=== PATIENT | female | born 1970 | race Caucasian/White ===

== ENCOUNTER 2016-11-14 10:03 | Emergency (ER) | payer OTHER ==
--- NOTE | 2016-11-14 10:12 | EDPHY ---
H & P Stated Complaint: Ringing in ears for 1 week, dizzy last week Time Seen by Provider: 11/14/16 10:12 HPI/ROS: CHIEF COMPLAINT: Tinnitus, resolved left-sided headache, episodic cervical pain HISTORY OF PRESENT ILLNESS: The patient presents to the ED with a one-week history of migratory, episodic bilateral tendinitis left greater than right. She had a brief sharp left-sided headache yesterday while driving and she has had some episodic cervical pain. She denies prior history of the symptoms. She denies any recent fall or chiropractic manipulation. The patient currently denies any headache. She did contact her primary care provider who referred her to the emergency department for further evaluation. REVIEW OF SYSTEMS: A comprehensive 10 point review of systems is otherwise negative aside from elements mentioned in the history of present illness. Source: Patient Exam Limitations: No limitations - Personal History LMP (Females 10-55): 22-28 Days Ago Current Tetanus/Diphtheria Vaccine: Unsure Current Tetanus Diphtheria and Acellular Pertussis (TDAP): Unsure Tetanus Vaccine Date: - Medical/Surgical History Hx Asthma: No Hx Chronic Respiratory Disease: No Hx Diabetes: No Hx Cardiac Disease: No Hx Renal Disease: No Hx Cirrhosis: No Hx Alcoholism: No Hx HIV/AIDS: No Other PMH: Surgial:ACL. Medical: denies - Social History Smoking Status: Never smoked - Physical Exam Exam: General Appearance: Alert, no distress Eyes: Pupils equal and round no pallor or injection ENT, Mouth: Mucous membranes moist Respiratory: There are no retractions, lungs are clear to auscultation Cardiovascular: Regular rate and rhythm Gastrointestinal: Abdomen is soft and nontender, no masses, bowel sounds normal Neurological: A&O, normal motor function, normal sensory exam, normal cranial nerves Skin: Warm and dry, no rashes Musculoskeletal: Neck is supple nontender Extremities: symmetrical, full range of motion Constitutional: Initial Vital Signs Temperature (C) 36.7 C 11/14/16 10:07 Heart Rate 87 11/14/16 10:07 Respiratory Rate 16 11/14/16 10:07 Blood Pressure 138/86 H 11/14/16 10:07 O2 Sat (%) 96 11/14/16 10:07 O2 Delivery Mode Room Air Allergies/Adverse Reactions: aspirin Allergy (Verified 11/14/16 10:07) Home Medications: Medication Instructions Recorded NK [No Known Home Meds] 11/14/16 Medical Decision Making - Diagnostics Imaging: MRI brain without contrast: Negative for intracranial abnormality. No radiographic evidence of subarachnoid hemorrhage. MR angiogram brain: Negative for aneurysm MR angiogram neck: Negative for dissection. All MRI results reported to me by Dr. Wily Hoffmann. ED Course/Re-evaluation: The patient presents to the ED with intermittent bilateral tinnitus for the past several weeks. The patient did have an episode of a very brief self- limited headache yesterday. She denies any focal neurologic symptoms and has been asymptomatic following that headache. Patient was referred to the ED by her primary care provider. In the ED the patient is noted to be neurologically intact. She has no risk factors for dissection. She has had some cervical neck pain as well. Given the patient's complaints of tinnitus, headache and neck pain I did perform an angiogram of her head and neck which was normal. MRI of her brain demonstrates no evidence of subarachnoid hemorrhage. The patient was initially offered a CT scan as she has been informed that that is more sensitive for subarachnoid hemorrhage but declined secondary to concerns of radiation. I re-evaluated the patient at 1:00 p.m.. I have informed her that at this point time we have a high degree of confidence that there is no evidence of a saccular aneurysm. The patient does not fully understand that we cannot fully exclude the possibility of a sentinel bleed from a non aneurysmal SAH. The patient does competently refuse lumbar puncture at this point time. She is comfortable returning to the ED for recurrent headache. She does understand that additional workup may be indicated in the event of a recurrent severe headache. Differential Diagnosis: Differential diagnosis considered includes dissection, aneurysm, subarachnoid hemorrhage, meningitis, intracranial tumor - Data Points Laboratory Results: 11/14/16 10:49 POC Hgb 13.6 gm/dL (12.3-15.9) POC Hct 40 % (35.5-47.5) POC Sodium 143 mEq/L (134-144) POC Potassium 3.6 mEq/L (3.3-5.0) POC Chloride 107 mEq/L (96-108) POC BUN 20 mg/dL (7-23) POC Creatinine 0.7 mg/dL (0.6-1.2) POC Glucose 110 H mg/dL (70-100) Point of Care Test Results: 11/14/16 10:49 POC Sodium 143 POC Potassium 3.6 POC Chloride 107 POC BUN 20 POC Creatinine 0.7 POC Glucose 110 H Departure - Departure Disposition: Home, Routine, Self-Care Clinical Impression: Tinnitus Condition: Good Instructions: Tinnitus (ED) Additional Instructions: 1. Please return to the emergency department for any recurrent headache, numbness, weakness or other concerns. 2. Your MRI and MR angiogram of the head and neck are normal. 3. Please follow up with your regular primary care provider as scheduled. As we discussed, we cannot fully exclude the possibility of a intracranial bleed without performing a lumbar puncture. Referrals: Isis Robledo MD [Primary Care Provider] - As per Instructions
[2016-11-14] MEDS ORDERED: GADOBUTROL 10 ML VIAL IVP ONE (11:06)
--- NOTE | 2016-11-14 12:36 | MR ---
MR Arteriogram of the [place] November 14, 2016 Indication: Headache and tinnitus. R29.818 Neurological changes strongly suggesting intracerebral ane urysm. Technique: A qekk-ni-wqgohc gradient echo technique was used for thin axial images at the skull base for evaluation of major vessels of the [place]. Three-dimensional technique was used with a 30-degree gradient echo flip angle and a traveling saturation band. Images were manipulated by the ra diologist at the computer workstation. Findings: Normal anterior and posterior circulation. No intracranial aneurysm, filling defect, or vas cular malformation. Bilateral posterior communicating arteries are small in caliber. The sagittal sin us has expected flow-void. Impression: Normal intracranial arterial circulation. No aneurysm or evidence of embolic disease. Comment: Results were discussed with Dr. Lizette Donaldson at 12:10 p.m. on November 14, 2016.
--- NOTE | 2016-11-14 12:40 | MR ---
MRI Brain Without Contrast dated November 14, 2016 Indication: Headache, tinnitus, and neck pain. Technique: Sagittal and axial T1, axial T2, FLAIR, susceptibility weighted, and diffusion-weighted im aging. Comparison: None. Findings: The brain is normally developed. No intracranial hemorrhage, subdural hematoma, mass, or ed jourdan. Evans and white matter signal is normal. No white matter disease. No cerebellopontine angle mass. Diffusion-weighted imaging is normal. No evidence of ischemia. Ventricular system is normal in calib er and midline. The sagittal sinus and basivertebral arteries have normal black flow-void in T2-weigh augusto imaging. The paranasal sinuses are clear except for trace fluid in the right mastoid air cells. T he cervicooccipital junction is normal and the pituitary gland is normal in size. Impression: Normal brain. No intracranial hemorrhage, mass, white matter disease, or ischemia. Comment: Results were discussed with Dr. Lizette Donaldson shortly after study completion.
--- NOTE | 2016-11-14 12:53 | MR ---
MR Angiography of the Neck November 14, 2016 Clinical Indications: Headache, tinnitus, and neck pain. Technique: After a preliminary timing bolus run, a three-dimensional vascular egvl-wc-dcbekh study w as performed from the upper chest to the skull base, using a total of 10 mL Gadavist intravenously. I mages were manipulated by the radiologist at the computer workstation. Findings: The aortic arch has typical three-vessel branching anatomy. The carotid and vertebral sandra nilton are all widely patent. No occlusion, dissection, or flow-limiting stenosis. Impression: Normal magnetic resonance angiogram of the neck. Measurement of carotid stenosis is based on the residual internal carotid diameter with [place] n Symptomatic Carotid Endarterectomy Trial (NASCET) based stenosis levels. Comment: Results were discussed with Dr. Juanpablo Gonzalez at 12:40 p.m. today.
[2016-11-14 13:35] VITALS: RESP 18; TEMP 98.2
[2016-11-14 14:07] LABS: PROTEIN, CSF 21 mg/dL (12-60)
[2016-11-14 14:09] LABS: CSF APPEARANCE CLEAR (CLEAR); CSF COLOR COLORLESS (COLORLESS); CSF SUPERNATANT COLORLESS (COLORLESS); WBC, CSF 0 /mm3 (0-5)
[2016-11-14 14:11] LABS: CSF APPEARANCE CLEAR (CLEAR); CSF COLOR COLORLESS (COLORLESS); CSF SUPERNATANT COLORLESS (COLORLESS)
[2016-11-14 14:15] LABS: WBC, CSF 0 /mm3 (0-5)
[2016-11-14 14:37] VITALS: BP 117/83; PULSE 59; O2SAT 96
== END 2016-11-14 14:36 | disposition home or self-care (01) ==
PROC: 009U3ZX Drainage of Spinal Canal, Percutaneous Approach, Diagnostic (ICD-10-PCS; principal; 2016-11-14)
DX: H93.19 Tinnitus, unspecified ear (principal); R51 Headache
CPT/HCPCS: 82947-QW; A9585

== ENCOUNTER 2016-11-17 11:39 | Emergency (ER) | payer OTHER ==
[2016-11-17 11:44] VITALS: BP 123/75; PULSE 65; RESP 16; TEMP 98.1; O2SAT 98
--- NOTE | 2016-11-17 12:22 | EDPHY ---
H & P Stated Complaint: MAST worse post spinal tap on sat. nausea - Personal History LMP (Females 10-55): Now Current Tetanus/Diphtheria Vaccine: Yes Current Tetanus Diphtheria and Acellular Pertussis (TDAP): Yes Tetanus Vaccine Date: - Medical/Surgical History Hx Asthma: No Hx Chronic Respiratory Disease: No Hx Diabetes: No Hx Cardiac Disease: No Hx Renal Disease: No Hx Cirrhosis: No Hx Alcoholism: No Hx HIV/AIDS: No Other PMH: Surgial:ACL, dental. Medical: denies - Social History Smoking Status: Never smoked HPI/ROS: CHIEF COMPLAINT: Headache HISTORY OF PRESENT ILLNESS: headache that originally started on Wednesday. This was primarily right-sided but also General at times. It was associated with tenderness of the time. She was seen here in the emergency department on Wednesday morning, where she had MRI, labs, LP were all reportedly normal. Headache improved but now is returning over the past 36 hours. It is worse when ambulatory and upright. It does improve with rest. No nausea or vomiting. No neck pain or stiffness. No hearing loss. No fever or chills. No other associated complaints or modifying factors. REVIEW OF SYSTEMS: Ten systems reviewed and are negative unless otherwise noted in the HPI EXAMINATION General Appearance: Alert, no distress Head: normocephalic, atraumatic Eyes: Pupils equal and round, no conjunctival pallor or injection ENT, Mouth: Mucous membranes moist Neck: Normal inspection, supple, non-tender , no meningismus Respiratory: Lungs are clear to auscultation Cardiovascular: Regular rate and rhythm Gastrointestinal: Abdomen is soft and nontender Back: non-tender, no bony abnormalities Neurological: A&O, nonfocal, strength is 5/5 symmetrically. Sensation intact. No pronator drift. Skin: Warm and dry, no rash Extremities: Nontender, no pedal edema Psychiatric: Mood and affect normal DIFFERENTIAL DIAGNOSES: 1. Post puncture headache 2. headache 3. Meniere's MDM: 12:25 headache post LP that is likely related. It is postural And she is neuro intact. No meningismus. She will likely benefit from a blood patch. We have contacted anesthesia and I spoke with Dr. Johnson. he informed me that he would be happy to perform the procedure but given the schedule at this time, it would likely be 7:00 p.m. before they are able to do so. We are exploring other options for the patient at this time. 12:57 after discussions with anesthesia and intervention Radiology, the patient will be seen in interventional radiology for blood patch later today. The 1st availability will be sometime after 5:00 p.m.. She will be discharged home at this time as we have placed an order for her to be done outpatient. Patient is comfortable this plan and discharged home in stable condition. She will be contacted by there department for scheduling later today. SUPERVISION: This patient was independently evaluated without the aide of supervising physician. (Junior Downing) Constitutional: Initial Vital Signs Temperature (C) 36.7 C 11/17/16 11:41 Heart Rate 65 11/17/16 11:41 Respiratory Rate 16 11/17/16 11:41 Blood Pressure 123/75 H 11/17/16 11:41 O2 Sat (%) 98 11/17/16 11:41 O2 Delivery Mode Room Air Allergies/Adverse Reactions: aspirin Allergy (Verified 11/14/16 10:07) Home Medications: Medication Instructions Recorded NK [No Known Home Meds] 11/14/16 Medical Decision Making Other Provider: The patient was evaluated and managed by the physician seo assistant. I have reviewed this chart and I agree with the findings and plan of care as documented , as indicated by my signature. I am the secondary supervising physician. ( Nathalie Acosta) Departure - Departure Disposition: Home, Routine, Self-Care Clinical Impression: Post-dural puncture headache Condition: Good Instructions: General Headache (ED), Lumbar Puncture (ED) Additional Instructions: Follow-up in Interventional Radiology later today for blood patch per their instructions. Referrals: Isis Robledo MD [Primary Care Provider] - As per Instructions
== END 2016-11-17 13:14 | disposition home or self-care (01) ==
DX: G97.1 Other reaction to spinal and lumbar puncture (principal)

== ENCOUNTER → 2016-11-17 | Day surgery (SDC) | payer OTHER ==
[~2016-11-17] MED LIST: IOPAMIDOL (ISOVUE-M 300) 15 ML VIAL IV ONE
--- NOTE | 2016-11-17 20:44 | IR ---
Lumbar Epidural Blood Patch History: Severe, disabling spinal headache after lumbar puncture three days ago. Consent: Risks and benefits of the procedure were discussed in detail. Informed consent was obtaine dMaricel Technique: The nurse started an intravenous line in the left forearm. With the patient prone, the b ack was prepped and draped in sterile fashion. 1% Xylocaine was used for local anesthetic. Using ltiplanar fluoroscopic guidance, an 18-gauge Tuohy needle was inserted into the back of the spinal ca nal at the level of the L2-L3 interlaminar space. Insertion site was close to the evidence of previo us needle insertion. Epidural position was confirmed with 2 mL of Isovue-M 300, and spot images were taken in oblique and frontal projections. 18 mL of venous blood were taken from the left arm of the patient and slowly injected into the lumbar epidural needle. The needle was removed and sterile lele ssing was applied. The patient was observed for 30 to 60 minutes prior to discharge from the [facility]. She tolerated the procedure well. Epidurogram: The 18-gauge Tuohy needle is in the midline at the L2-L3 interlaminar space, with even distribution of epidural contrast. Impression: Lumbar epidural blood patch, using 18 mL of blood. - - - - - - - - - - - - - - - - - - - - - - - - - - - - - - - - - - - - - - - - - - - - (PQRS Measures: Current medications were listed in the medical record, including all known prescript ions, keds-cui-tilukit medications, herbal medications, and nutritional supplements. Tobacco Use: N one. Prophylactic antibiotic: Unnecessary. VTE prophylaxis: Unnecessary.) IR Call
== END | disposition home or self-care (01) ==
LOC: FIMAGING 18:10
PROVIDERS: ATTEND Physician Assistant
PROC: 3E0S3GC Introduction of Other Therapeutic Substance into Epidural Space, Percutaneous Approach (ICD-10-PCS; principal; 2016-11-17)
DX: R51 Headache (principal); G97.1 Other reaction to spinal and lumbar puncture
CPT/HCPCS: Q9967

== ENCOUNTER → 2017-11-12 | Outpatient (CLI) | payer OTHER | LOC: FIMAGING 12:32 | PROVIDERS: ATTEND Family Medicine | DX: R93.8 Abnormal findings on diagnostic imaging of other specified body structures (principal); N64.4 Mastodynia ==